=== PATIENT | female | born 1975 | race Caucasian/White ===

== ENCOUNTER 2019-02-20 14:16 | Emergency (ER) | payer SELFPAY ==
[~2019-02-20] VITALS: Ht 167.6 cm; Wt 129.6 kg
[~2019-02-20 14:16] MED LIST: AMOXICILLIN500 MG OR; BACTRIM DS1 TAB PO; FIORICET PO; LORTAB 5 OR; NAPROSYN500 MG PO; NO; ONDANSETRON4 MG PO; ROBITUSS11 OR; TOPAMAX50 M1 PO; ULTRAM50 M1 OR; ULTRAM50 MG PO; ZOFRAN ODT4 MG PO
[2019-02-20] MEDS ORDERED: AMOXICILLIN500 MG PO (15:56)
[2019-02-20] MEDS ORDERED: TORADOL PO (15:56)
[2019-02-20 16:02] VITALS: BP 162/103
== END 2019-02-20 16:05 | disposition home or self-care (01) | DRG 153 ==
LOC: ED 14:16
DX: J02.9 Acute pharyngitis, unspecified (principal); I10 Essential (primary) hypertension; E11.9 Type 2 diabetes mellitus without complications

== ENCOUNTER 2020-02-03 | Emergency (ER) | payer SELFPAY ==
[~2020-02-03] MED LIST changes: +AMOXICILLIN500 MG PO; +TORADOL PO
[2020-02-03] MEDS ORDERED: METFORMIN500 MG PO (17:17)
[2020-02-03] MEDS ORDERED: BENZONATATE200 MG PO (17:18)
[2020-02-03] MEDS ORDERED: AMOX/K CLAV875 M1 PO (17:18)
[2020-02-03] MEDS ORDERED: TRAMADOL HYDROC50 M1 PO (19:41)
[2020-02-03] MEDS ORDERED: FLEXERIL PO (19:41)
[2020-02-03] MEDS ORDERED: MEDDOSEPAK PO (19:41)
== END 2020-02-03 20:00 | disposition home or self-care (01) | DRG 563 ==
DX: S39.012A Strain of muscle, fascia and tendon of lower back, initial encounter (principal); M62.830 Muscle spasm of back; E11.9 Type 2 diabetes mellitus without complications; I10 Essential (primary) hypertension; X50.0XXA Overexertion from strenuous movement or load, initial encounter; Z79.84 Long term (current) use of oral hypoglycemic drugs

== ENCOUNTER 2020-02-06 | Emergency (ER) | payer SELFPAY ==
[~2020-02-06] MED LIST changes: +AMOX/K CLAV875 M1 PO; +BENZONATATE200 MG PO; +FLEXERIL PO; +MEDDOSEPAK PO; +METFORMIN500 MG PO; +TRAMADOL HYDROC50 M1 PO
[2020-02-07 00:38] LABS: URINE BILIRUBIN - DIPSTICK NEGATIVE (NEGATIVE); URINE BLOOD DIPSTICK TRACE-INTACT (NEGATIVE); URINE COLOR YELLOW; URINE GLUCOSE - DIPSTICK >=1000 mg/dL (NEGATIVE); URINE KETONE 15 mg/dL (NEGATIVE); URINE LEUK ESTERASE NEGATIVE (NEGATIVE); URINE NITRITE - DIPSTICK NEGATIVE (Negative); URINE PROTEIN - DIPSTICK NEGATIVE (NEG-TRACE); URINE UROBILINOGEN - DIPSTICK 0.2 E.U./dL (0.2)
[2020-02-07 01:03] LABS: HEMATOCRIT 47.3 % (37.0-47.0); HEMOGLOBIN 15.8 g/dl (12.0-16.0); IMMATURE GRANULOCYTES 0.4 % (0.0-5.0); MEAN CELL VOLUME 80.6 fL CALC (80.0-100.0); MEAN CORPUSCULAR HGB 26.9 pG CALC (26.0-32.0); MEAN CORPUSCULAR HGB CONC 33.4 g/dL CAL (32.0-36.0); NEUT# 14.79 thou/uL (2.00-7.15); RED BLOOD COUNT 5.87 mill/uL (4.20-5.60); RED CELL DISTRI WIDTH 12.8 % (11.5-15.5)
[2020-02-07 01:15] LABS: BARBITURATES NEGATIVE (NEGATIVE); COCAINE NEGATIVE (NEGATIVE); METHADONE NEGATIVE (NEGATIVE); OXCYCODONE NEGATIVE (NEGATIVE); TETRAHYDROCANNABIONOL NEGATIVE (NEGATIVE); TRICYLIC ANTIDEPRESSANTS POSITIVE (NEGATIVE)
[2020-02-07 01:22] LABS: ALBUMIN 4.3 g/dL (3.2-5.0); ALKALINE PHOSPHATASE 97 u/l (38-126); ANION GAP 18 (6-22 (CALC)); BILIRUBIN, TOTAL 0.7 mg/dL (0.0-1.4); BUN 14 mg/dL (7-17); BUN/CREATININE RATIO 24 (12-20 (CALC)); CARBON DIOXIDE 22 mmol/l (22-30); CHLORIDE 100 mmol/l (95-108); CREATININE 0.6 mg/dL (0.5-1.0); GFR > 60 ML/MIN (>=60 (CALC)); GFR FOR AFR.AMER. > 60 ML/MIN (>=60 (CALC)); SGOT/AST 34 u/l (14-36); SODIUM 135 mmol/l (137-146); TOTAL PROTEIN 7.6 g/dL (6.3-8.2)
== END 2020-02-07 02:30 | disposition home or self-care (01) | DRG 563 ==
DX: S39.012A Strain of muscle, fascia and tendon of lower back, initial encounter (principal); E11.9 Type 2 diabetes mellitus without complications; I10 Essential (primary) hypertension; X50.0XXA Overexertion from strenuous movement or load, initial encounter

== ENCOUNTER 2020-11-08 14:06 | Emergency (ER) | payer SELFPAY ==
[~2020-11-08] VITALS: Ht 167.6 cm; Wt 136.3 kg
[~2020-11-08 14:06] MED LIST changes: +METFORMIN500 M2 PO; -METFORMIN500 MG PO
[2020-11-08] MEDS ORDERED: PRAVASTATIN20 MG PO (14:31)
[2020-11-08] MEDS ORDERED: ATORVASTATIN CA10 MG PO (14:34)
[2020-11-08] MEDS ORDERED: PROPRANOLOL HYD40 MG PO (14:36)
[2020-11-08] MEDS ORDERED: KEFLEX500 M1 PO (15:08)
[2020-11-08] MEDS ORDERED: BACTRIM DS1 TAB PO (15:08)
[2020-11-08 15:15] VITALS: BP 157/81
== END 2020-11-08 15:15 | disposition home or self-care (01) | DRG 603 ==
LOC: ED 14:06
PROC: 0X950ZZ Drainage of Left Axilla, Open Approach (ICD-10-PCS; principal; 2020-11-08)
DX: L02.412 Cutaneous abscess of left axilla (principal); E11.9 Type 2 diabetes mellitus without complications; I10 Essential (primary) hypertension; J45.909 Unspecified asthma, uncomplicated; Z79.84 Long term (current) use of oral hypoglycemic drugs

== ENCOUNTER 2020-11-10 16:45 | Emergency (ER) | payer SELFPAY ==
[~2020-11-10] VITALS: Ht 167.6 cm; Wt 134.0 kg
[~2020-11-10 16:45] MED LIST changes: +ATORVASTATIN CA10 MG PO; +KEFLEX500 M1 PO; +PRAVASTATIN20 MG PO; +PROPRANOLOL HYD40 MG PO
[2020-11-10 18:28] VITALS: BP 138/77
== END 2020-11-10 18:28 | disposition home or self-care (01) | DRG 951 ==
LOC: ED 16:45
DX: Z48.01 Encounter for change or removal of surgical wound dressing (principal); E11.9 Type 2 diabetes mellitus without complications; I10 Essential (primary) hypertension; J45.909 Unspecified asthma, uncomplicated; Z79.84 Long term (current) use of oral hypoglycemic drugs

== ENCOUNTER 2020-11-12 14:27 | Emergency (ER) | payer SELFPAY ==
[~2020-11-12] VITALS: Ht 167.6 cm; Wt 134.0 kg
[2020-11-12 15:20] VITALS: BP 146/81
== END 2020-11-12 15:20 | disposition home or self-care (01) | DRG 951 ==
LOC: ED 14:27
DX: Z48.01 Encounter for change or removal of surgical wound dressing (principal); E11.9 Type 2 diabetes mellitus without complications; I10 Essential (primary) hypertension; J45.909 Unspecified asthma, uncomplicated; Z79.84 Long term (current) use of oral hypoglycemic drugs

== ENCOUNTER 2021-03-01 10:58 | Inpatient (IN) | payer OTHER ==
[~2021-03-01] VITALS: Ht 167.6 cm; Wt 134.0 kg
--- NOTE | 2021-03-01 12:00 | NUR ---
PATIENT POSITIONED FOR COMFORT,CALL FROST GIVEN.
[2021-03-01 12:25] LABS: HEMATOCRIT 44.7 % (37.0-47.0); HEMOGLOBIN 14.5 g/dl (12.0-16.0); IMMATURE GRANULOCYTES 0.5 % (0.0-5.0); MEAN CELL VOLUME 81.6 fL CALC (80.0-100.0); MEAN CORPUSCULAR HGB 26.5 pG CALC (26.0-32.0); MEAN CORPUSCULAR HGB CONC 32.4 g/dL CAL (32.0-36.0); NEUT# 5.03 thou/uL (2.00-7.15); RED BLOOD COUNT 5.48 mill/uL (4.20-5.60); RED CELL DISTRI WIDTH 12.8 % (11.5-15.5)
[2021-03-01 12:57] LABS: ALKALINE PHOSPHATASE 105 u/l (38-126); BILIRUBIN, TOTAL 0.9 mg/dL (0.0-1.4); BUN 14 mg/dL (7-17); BUN/CREATININE RATIO 25 (12-20 (CALC)); CHLORIDE 95 mmol/l (95-108); CREATININE 0.5 mg/dL (0.5-1.0); GFR > 60 ML/MIN (>=60 (CALC)); GFR FOR AFR.AMER. > 60 ML/MIN (>=60 (CALC)); LIPASE 50 u/l (23-300); SGOT/AST 39 u/l (14-36); SODIUM 134 mmol/l (137-146); TOTAL PROTEIN 7.5 g/dL (6.3-8.2)
--- NOTE | 2021-03-01 13:00 | NUR ---
PATIENT RESTING QUIETLY. CALL FROST IN REAC
[2021-03-01 13:08] LABS: ANION GAP 12 (6-22 (CALC)); C-REACTIVE PROTEIN 12.8 mg/dL (0-0.9); CARBON DIOXIDE 30 mmol/l (22-30); POTASSIUM 3.4 mmol/l (3.5-5.1)
--- NOTE | 2021-03-01 14:00 | NUR ---
RESTING,CALM. CALL FROST IN REACH
[2021-03-01 14:09] LABS: URINE BLOOD DIPSTICK NEGATIVE (NEGATIVE); URINE COLOR YELLOW; URINE GLUCOSE - DIPSTICK 250 mg/dL (NEGATIVE); URINE KETONE >=80 mg/dL (NEGATIVE); URINE LEUK ESTERASE NEGATIVE (NEGATIVE); URINE PH 6.5 (4.5-8.0); URINE PROTEIN - DIPSTICK >=300 mg/dL (NEG-TRACE); URINE SPECIFIC GRAVITY 1.025
[2021-03-01 14:12] LABS: URINE BILIRUBIN - DIPSTICK MODERATE (NEGATIVE); URINE EPITHELIAL CELLS MODERATE EPI/hpf (0-FEW); URINE NITRITE - DIPSTICK NEGATIVE (Negative)
--- NOTE | 2021-03-01 15:00 | NUR ---
NO DISTRESS. CATIA FROST AVAILABLE
--- NOTE | 2021-03-01 16:06 | NUR ---
RESTING IN BED, DRINKING WATER AT THIS TIME
--- NOTE | 2021-03-01 17:05 | NUR ---
REPORT CALLED TO CHERIE RECEIVING NURSE ON MS IN SBAR FORMAT.
--- NOTE | 2021-03-01 17:05 | NUR ---
RPEORT REC FROM ASPEN FRANCIS
--- NOTE | 2021-03-01 17:39 | NUR ---
belongings list completed and signed by patient.
[2021-03-01] MEDS ORDERED: TIMOPTIC OCUDO (17:51)
[2021-03-01 17:53] VITALS: BP 122/72
--- NOTE | 2021-03-01 17:53 | NUR ---
PT ARRIVED VIA WC ACCOMPANIED BY Melisa HERNANDEZ RN. A&O X3. O2 VIA NC @2L APPLIED, O2 VIA ROOM AIR CURRENTLY 89-90. EXERTIONAL SOB NOTED. CLEAR/DIMINISHED BREATH SOUNDS UPON AUSCULTATION. PT REPORTS TO HAVE TESTED OUTPT AND POSITIVE ON SUNDAY, BUT SYMPTOMS BEGAN TO APPEAR ON 02/17. REPORTS WORSENING SOB. ACCOUNTS PAYABLE COORDINATOR #[id number] WITH CURRENT RATE OF 85 SR WTH PVCS, PER [facility]. TRACE EDEMA NOTED TO BLE. STRONG PEDAL PULSES. REGULAR S1&S2 SOUNDS HEARD UPON AUSCULTATION. REPORTS NAUSEA AND VOMITING, BUT DENIES ANY VOMITING EPISODES TODAY. #20 RAC, HEALTHY AND PATENT/FLUSHES WITH EASE. IS DEVICE GIVEN, CURRENTLY ACHIEVING 1000ML, GOAL SET AT 1500ML. PT DEMONSTRATED PROPER USE OF DEVICE, ENCOURAGED PT TO USE DEVICE EVERY HOUR WHILE AWAKE. ASSESSMENT COMPLETED. DISCUSSED POC. CALL LIGHT WITHIN REACH.
[2021-03-01] MEDS ORDERED: EYE DROP (17:54)
--- NOTE | 2021-03-01 17:54 | NUR ---
TO M/S VIA WC. STABLE UPON ARRIVAL. IV INTACT
--- NOTE | 2021-03-01 19:00 | NUR ---
REPORT RECEIVED FROM Adam SETH RN, CARE OF PT ASSUMED AT THIS TIME.
--- NOTE | 2021-03-01 20:51 | NUR ---
SPOKE WITH FELT HAT INSPECTOR AND PACKER PAPITO CAMPBELL RN TO RETRIEVE ALBUTEROL INHALER ONE IS NOT AVAILABLE ON UNIT.
--- NOTE | 2021-03-01 21:18 | NUR ---
PHYSICAL ASSESMENT COMPLETED. REPORTS COUGH, SOB WITH EXERTION AND GEN BODY ACHES. 02 AT 2L/M VIA NC. RESPIRATIONS REGULAR AND UNLABORED AT REST. FINGER STICK GLUCOSE 389mg/dl. SCHEDULED MEDICATIONS ADMINISTERED, PRN APAP ADMINSITERED FOR GENERALIZED BODY AHCES AND PRN ROBITUSSIN FOR COUGH. SEE E-MAR. PT REQUEST APPLE JUICE AND DENIES FURTHER NEEDS. PLAN OF CARE REVIEWED, PT VERBALIZES UNDERSTANDING AND DENIES QUESTIONS. CALL FROST WITHIN REACH, AGREES TO CALL PRN. COVID ISOLATION IN PLACE PER [facility] POLICY.
[2021-03-02] VITALS: BP 127/74
--- NOTE | 2021-03-02 01:00 | NUR ---
PT APPEARS TO BE SLEEPING COMFORTABLY, LAYING IN BED WITH EYES CLOSED, RESPIRATIONS REGULAR AND UNLABORED. NO APPARENT DISTRESS. CALL FROST REMAINS WITHIN REACH.
[2021-03-02 04:00] VITALS: BP 138/72
--- NOTE | 2021-03-02 04:59 | NUR ---
AM LABS DRAWN BY RADHA LIGHT CLEANER.
[2021-03-02 05:36] LABS: HEMATOCRIT 47.5 % (37.0-47.0); HEMOGLOBIN 14.9 g/dl (12.0-16.0); IMMATURE GRANULOCYTES 0.4 % (0.0-5.0); MEAN CELL VOLUME 83.8 fL CALC (80.0-100.0); MEAN CORPUSCULAR HGB 26.3 pG CALC (26.0-32.0); MEAN CORPUSCULAR HGB CONC 31.4 g/dL CAL (32.0-36.0); NEUT# 1.53 thou/uL (2.00-7.15); RED BLOOD COUNT 5.67 mill/uL (4.20-5.60); RED CELL DISTRI WIDTH 12.7 % (11.5-15.5)
[2021-03-02 06:07] LABS: ALBUMIN 3.8 g/dL (3.2-5.0); ALKALINE PHOSPHATASE 96 u/l (38-126); BILIRUBIN, TOTAL 0.8 mg/dL (0.0-1.4); BUN 11 mg/dL (7-17); BUN/CREATININE RATIO 28 (12-20 (CALC)); C-REACTIVE PROTEIN 8.7 mg/dL (0-0.9); CHLORIDE 102 mmol/l (95-108); CREATININE 0.4 mg/dL (0.5-1.0); GFR > 60 ML/MIN (>=60 (CALC)); GFR FOR AFR.AMER. > 60 ML/MIN (>=60 (CALC)); SGOT/AST 35 u/l (14-36); SODIUM 136 mmol/l (137-146); TOTAL PROTEIN 7.1 g/dL (6.3-8.2)
--- NOTE | 2021-03-02 06:16 | NUR ---
PT REPORTS SHE FEELS SHE MAY BE GETTING A YEAST INFECTION. WILL ENDORSE TO ONCOMING NURSE TO ENDORSE TO PROVIDER.
[2021-03-02 06:22] LABS: ANION GAP 17 (6-22 (CALC)); CARBON DIOXIDE 22 mmol/l (22-30); POTASSIUM 4.9 mmol/l (3.5-5.1)
[2021-03-02 08:00] VITALS: BP 113/70
--- NOTE | 2021-03-02 08:50 | NUR ---
PT LAYING IN BED. A&O X4. O2 VIA NC @2L IN PLACE. EXERTIONAL SOB NOTED/REPORTED. CLEAR/DIMINISHED BREATH SOUNDS UPON AUSCULTATION. REGULAR HR/RHYTHM HEARD UPON AUSCULTATION. DATA TECHNICIAN IN PLACE. ACTIVE BOWEL SOUNDS HEARD X4 QUADS. PT REPORTS NAUSEA RELIEF, NO VOMITING EPISODES. IS DEVICE AT BEDSIDE, PT ENCOURAGED TO US IS DEVICE THROUGHOUT THE DAY. PT CURRENTLY DEMONSTRATING PROPER USE OF DEVICE, CURRENTLY ACHIEVING 1000ML, GOAL SET AT 1500 ML X8 REPITITIONS. #20 RAC HEALTHY AND PATENT. TRACE EDEMA NOTED TO BLE. ASSESSMENT COMPLETED. DISCUSSED POC. CALL LIGHT WITHIN REACH.
--- NOTE | 2021-03-02 10:38 | NUR ---
ASSISTED THE PT TO BATHROOM AND INTO THE CHAIR. O2 VIA NC @2L REMAINS IN PLACE. VENTOLIN INHALER GIVEN. EYE DROPS PROFILED. PT C/O OF "A LITTLE BIT OF NAUSEA", REQUESTED CRACKERS; GIVEN. NO OTHER NEEDS AT THIS TIME. CALL LIGHT WITHIN REACH.
[2021-03-02 11:02] VITALS: BP 125/76
--- NOTE | 2021-03-02 14:30 | NUR ---
UPON ENTERING ROOM, PT SLEEPING. AWAKENED TO TAKE VENTOLIN INHALER. CONTINUES OM O2 VIA NC @2L. NO NEEDS AT THIS TIME. CALL LIGHT WITHIN REACH.
[2021-03-02 15:35] VITALS: BP 132/79
--- NOTE | 2021-03-02 18:11 | NUR ---
PT SITTING IN BED. O2 TITRATED DOWN TO 1L AT THIS TIME. #20G RAC DRESSING REMOVED AND REDRESSED. NO OTHER NEEDS AT THIS TIME. CALL LIGHT WITHIN REACH
--- NOTE | 2021-03-02 18:40 | NUR ---
O2 DURGA NC TITRATED UP TO 2L VIA NC. O2 CURRENTLY 94% ON 2L. VENTOLIN INHALER GIVEN. NO NEEDS AT THIS TIME. CALL LIGHT WITHIN REACH.
[2021-03-02 19:00] VITALS: BP 108/77
--- NOTE | 2021-03-02 20:00 | NUR ---
PT REMAINS ON ISOLATION ZALDIVAR D/T COVID POSITIVE STATUS. SHIFT ASSESSMENT COMPLTED WITH PT, PLEASE SEE ASSESSMENT. NO COMPLAINTS VOICED. SAFETY PRECAUTIONS IN PLACE. WILL MONITOR
--- NOTE | 2021-03-02 21:20 | NUR ---
HS BLOOD SUGAR READ 286 VIA FINGERSTICK. STAT BLOOD GLUCOSE ORDERED. RESULTS FROM BLOOD GLUCOSE READ AT 268. MD NOTIFIED AND NEW ORDER RECIVED, INCREASE SLIDING SCALE TO HIGH DOSE SLIDER AND NPH INSULIN 10U SQ BID STARTING TONIGHT. NPH ADMINSTERED PER ORDER. WILL MONITOR.
[2021-03-03] VITALS: BP 140/75
--- NOTE | 2021-03-03 | NUR ---
PT RESTRING QUIETLY, NO COMPLAINTS VOICED AT THIS TIME. DENIES PAIN. CONTINUES TO HAVE A NON-PRODUCTIVE COUGH. O2 SATURATIONS REMAIN WNL. SAFETY PRECAUTIONS IN PLACE, BED IN LOWEST POSITION, CALL LIGHT WITHIN REACH.
--- NOTE | 2021-03-03 03:47 | NUR ---
PT RESTING QUIETLY IN ROOM ON HER RIGHT SIDE WITH HER EYES CLOSED. NO COMPLAINTS VOICED, NO S/S OF DISTRESS NOTED. BREATHING IS EVEN AND UNLABORED. SAFETY PRECAUTIONS IN PLACE, BED IN LOWEST POSITION, CALL LIGHT WITHIN REACH. WILL MONITOR
[2021-03-03 04:00] VITALS: BP 123/66
[2021-03-03 05:41] LABS: HEMATOCRIT 42.4 % (37.0-47.0); HEMOGLOBIN 13.5 g/dl (12.0-16.0); MEAN CELL VOLUME 82.3 fL CALC (80.0-100.0); MEAN CORPUSCULAR HGB 26.2 pG CALC (26.0-32.0); MEAN CORPUSCULAR HGB CONC 31.8 g/dL CAL (32.0-36.0); RED BLOOD COUNT 5.15 mill/uL (4.20-5.60); RED CELL DISTRI WIDTH 12.6 % (11.5-15.5)
[2021-03-03 06:11] LABS: ANION GAP 14 (6-22 (CALC)); BUN 13 mg/dL (7-17); BUN/CREATININE RATIO 26 (12-20 (CALC)); CARBON DIOXIDE 24 mmol/l (22-30); CHLORIDE 101 mmol/l (95-108); CREATININE 0.5 mg/dL (0.5-1.0); GFR > 60 ML/MIN (>=60 (CALC)); GFR FOR AFR.AMER. > 60 ML/MIN (>=60 (CALC)); MAGNESIUM 2.1 mg/dL (1.6-2.3); SODIUM 135 mmol/l (137-146)
--- NOTE | 2021-03-03 07:15 | NUR ---
REPORT RECEIVED FROM SHARON AMANDA. PT RESTING IN BED SUPINE WITH EYES CLOSED AND NO SIGNS OF DISTRESS; AWAKENS TO VERBAL STIMULI; DROWSY AND ORIENTED X 3. DENIES PAIN. RESPIRATIONS EVEN AND UNLABORED ON OXYGEN 2L VIA NC; PT DOES REPORT MILD SOB; SPO2 95% CURRENTLY IN SUPINE POSITION. LUNGS ARE CLEAR; TRACE ANKLE EDEMA NOTED. 10 UNITS OF SLIDING SCALE INSULIN COVERAGE GIVEN FOR ACCU CHECK OF 347. POC REVIEWED; PT ENCOUARGED TO VERBALIZE CONCERNS. STATES UNDERSTANDING. SAFETY MEASURES IN PLACE; CALL LIGHT WITHIN REACH.
[2021-03-03 07:41] VITALS: BP 138/68
--- NOTE | 2021-03-03 10:50 | NUR ---
DR. GRIMES AND ANNMARIE FOX AT BEDSIDE. ACCU CHECK 410; 14 UNITS OF HUMALOG GIVEN PER SLIDING SCALE; VERBAL ORDER RECEIVED FOR AN ADDITIONAL 10 UNITS X 1.
[2021-03-03 10:51] VITALS: BP 127/59
--- NOTE | 2021-03-03 12:37 | NUR ---
SITTING UP ON COUCH BESIDE WINDOW; EXTENSION TUBING IN PLACE SHE CONTINUES TO REQUIRE 2L OF OXYGEN VIA NC; FLAT AFFECT. ROCEPHIN AND ZITHROMAX INFUSED WITHOUT DIFFICULTY.
--- NOTE | 2021-03-03 13:06 | NUR ---
TYLENOL GIVEN FOR 05/14 HEADACHE; COOL CLOTH APPLIED. EYE DROPS SELF ADMINSITERED BY PATIENT.
--- NOTE | 2021-03-03 14:30 | NUR ---
TYLENOL EFFECTIVE FOR HEADACHE. DRESSING TO IV IN RAC CHANGED; IV IS PATENT AND FLUSHES WITH GOOD BLOOD RETURN; REMDESIVIR NOW INFUSING. PT REQUESTING FAN; PROVIDED. FAMILY BROUGHT PT DRINK; REMINDED THAT SHE IS ON A DIABETIC DIET.
[2021-03-03 14:51] VITALS: BP 163/77
[2021-03-03 19:13] VITALS: BP 137/62
--- NOTE | 2021-03-03 22:37 | NUR ---
PATIENT'S BLOOD GLUCOSE HS WAS 431. 14 UNITS FAST ACTING INSULIN SQ. COLLIN ECOMMERCE ANALYST NOTIFIED. NEW ORDERS RECEIVED. AWAITING FOR PHARMACY TO VERIFY ORDER. PATIENT CURRENTLY RESTING IN BED WITHOUT COMPLAINT.
[2021-03-04 00:35] VITALS: BP 157/66
[2021-03-04 05:18] VITALS: BP 156/75
[2021-03-04 06:48] LABS: HEMATOCRIT 42.6 % (37.0-47.0); HEMOGLOBIN 13.3 g/dl (12.0-16.0); IMMATURE GRANULOCYTES 0.8 % (0.0-5.0); MEAN CELL VOLUME 84.2 fL CALC (80.0-100.0); MEAN CORPUSCULAR HGB 26.3 pG CALC (26.0-32.0); MEAN CORPUSCULAR HGB CONC 31.2 g/dL CAL (32.0-36.0); NEUT# 6.27 thou/uL (2.00-7.15); RED BLOOD COUNT 5.06 mill/uL (4.20-5.60); RED CELL DISTRI WIDTH 12.7 % (11.5-15.5)
[2021-03-04 07:18] VITALS: BP 151/62
[2021-03-04 07:22] LABS: ALBUMIN 3.4 g/dL (3.2-5.0); ALKALINE PHOSPHATASE 88 u/l (38-126); ANION GAP 10 (6-22 (CALC)); BILIRUBIN, TOTAL 0.6 mg/dL (0.0-1.4); BUN 14 mg/dL (7-17); BUN/CREATININE RATIO 25 (12-20 (CALC)); C-REACTIVE PROTEIN 1.2 mg/dL (0-0.9); CHLORIDE 101 mmol/l (95-108); CREATININE 0.6 mg/dL (0.5-1.0); GFR > 60 ML/MIN (>=60 (CALC)); GFR FOR AFR.AMER. > 60 ML/MIN (>=60 (CALC)); POTASSIUM 3.4 mmol/l (3.5-5.1); SGOT/AST 18 u/l (14-36); SODIUM 138 mmol/l (137-146); TOTAL PROTEIN 6.5 g/dL (6.3-8.2)
[2021-03-04 07:30] LABS: CARBON DIOXIDE 30 mmol/l (22-30)
--- NOTE | 2021-03-04 07:30 | NUR ---
REPORT RECEIVED FROM PENNY FALK. PT SITTING UP IN BED; ALERT AND ORIENTED X 3. DENIES PAIN. RESPIRATIONS EVEN AND UNLABORED ON OXYGEN 2L VIA NC; SPO2 95%; TITRATED OXYGEN DOWN TO 1L AT THIS TIME; LUNGS ARE CLEAR. PT IS INDEPENDENT IN ROOM; ACCU CHECK 179. SUGAR PACKETS FOUND ON BEDSIDE TABLE; PT REMINDED THAT SHE NEEDS TO BE USING SUGAR SUBTITUTES AND SUGAR REMOVED FROM TABLE. PT STATES, "I DON'T LIKE THE WAY THOSE TASTE AND I ONLY USE 3 PACKETS IN MY TEA." DIETARY CONSULT ORDERED FOR DIABETIC EDUCATION. POC REVIEWED. PT ENCOURAGED TO VERBALIZE CONCERNS. STATES UNDERSTANDING. SAFETY MEASURES IN PLACE. CALL LIGHT WITHIN REACH.
--- NOTE | 2021-03-04 09:32 | NUR ---
IV SITE BURNING; ATTEMPT X 2 UNSUCCESSFUL. ROBITUSSIN AND VENTOLIN INHALER GIVEN WITH AM MEDS FOR PRODUCTIVE COUGH WITH WHITE/CLEAR SPUTUM AND SOB WITH EXERTION.
--- NOTE | 2021-03-04 09:53 | NUR ---
#22G IV STARTED TO LFA BY PENNY DWYER. IV TO RAC DC'D WITH CATH TIP INTACT; PT TOLERATED WELL. ZITHROMAX NOW INFUSING WITHOUT DIFFICULTY.
[2021-03-04 11:20] VITALS: BP 152/74
--- NOTE | 2021-03-04 11:55 | NUR ---
PT ASKING OTHER STAFF MEMBER FOR SUGAR PACKETS. NUTRITION CONSULT ORDERED FOR DIABETIC EDUCATION; PT GIVEN SOME EDUCATION ABOUT SKILLED NURSING EFFECTS OF UNCONTROLLED DIABETES. 2 UNITS OF INSULIN GIVEN FOR ACCU CHECK OF 200. RESPIRATIONS ARE EVEN AND SHALLOW; 92% ON 1L VIA NC.
--- NOTE | 2021-03-04 13:59 | NUR ---
WRITTEN DIABETIC EDUCATION PROVIDED TO PATIENT AND GOETZ POINTS REVIEWED; PT HAS FLAT AFFECT AND DOES NOT ENGAGE IN DISCUSSION. NURSE ASKED PT IF SHE UNDERSTOOD AND PT SHAKES HEAD YES, BUT DOES NOT RESPOND VERBALLY. REMDESIVIR INFUSING. PT REQUESTS TO TAKE A SHOWER AFTER INFUSION.
[2021-03-04 15:42] VITALS: BP 149/70
--- NOTE | 2021-03-04 17:00 | NUR ---
SET UP FOR SHOWER; TOLERATED EXERTION WELL. SITTING UP IN BEDSIDE CHAIR. NO REQUESTS OR CONCERNS AT THIS TIME. CALL LIGHT WITHIN REACH.
[2021-03-04 19:37] VITALS: BP 151/61
--- NOTE | 2021-03-04 20:00 | NUR ---
PT AWAKE IN HIGH [place] POSITION WATCHING TV, WITH BELONGINGS AND CALL LIGHT WITHN REACH. PT ADMINISTERS OWN EYE DROPS AND INHALER WHICH ARE BEDSIDE. NO COMPLAINT OF SOB, AMBULATES WITHOUT ASSISTANCE. WILL CONTINUE TO MONITOR.
--- NOTE | 2021-03-05 | NUR ---
PT RESTING WITH EYES CLOSED WITHOUT S/S OF DISTRESS. CALL LIGHT AND BELONGINGS WITHIN REACH.
[2021-03-05 00:03] VITALS: BP 161/76
[2021-03-05 04:00] VITALS: BP 165/56
--- NOTE | 2021-03-05 04:00 | NUR ---
PT SLEEPING WITHOUT S/S OF DISCOMFORT. CALL LIGHT AND BELONGINGS WITHIN REACH. WILL CONTINUE TO MONITOR.
[2021-03-05 05:43] LABS: HEMATOCRIT 39.6 % (37.0-47.0); HEMOGLOBIN 12.5 g/dl (12.0-16.0); MEAN CELL VOLUME 82.3 fL CALC (80.0-100.0); MEAN CORPUSCULAR HGB CONC 31.6 g/dL CAL (32.0-36.0); RED BLOOD COUNT 4.81 mill/uL (4.20-5.60); RED CELL DISTRI WIDTH 12.7 % (11.5-15.5)
--- NOTE | 2021-03-05 06:00 | NUR ---
PT SLEEPING SHOWING NO SIGNIFICANT DECREASE IN O2 LEVELS OVER NIGHT, MAY BE ABLE TO WEEN OFF OXYGEN TODAY IF IT DOES NOT DECREASE WITH ACTIVITY. WILL CONTINUE TO MONITOR.
[2021-03-05 06:07] LABS: ANION GAP 10 (6-22 (CALC)); BUN 13 mg/dL (7-17); BUN/CREATININE RATIO 30 (12-20 (CALC)); CARBON DIOXIDE 27 mmol/l (22-30); CHLORIDE 103 mmol/l (95-108); CREATININE 0.5 mg/dL (0.5-1.0); GFR > 60 ML/MIN (>=60 (CALC)); GFR FOR AFR.AMER. > 60 ML/MIN (>=60 (CALC)); POTASSIUM 3.7 mmol/l (3.5-5.1); SODIUM 136 mmol/l (137-146)
[2021-03-05 07:30] VITALS: BP 147/84
--- NOTE | 2021-03-05 08:00 | NUR ---
PT WAS FOUND RESTING IN BED;PT IS A&OX3;VS AND ASSESSMENT WERE COMPLETED;PT HAS NO REPORTS OF PAIN AT THIS TIME;HEART SOUNDS ARE REGULAR IN RATE AND RHYTHM;LUNG SOUNDS ARE CLEAR AND DIMINISHED;RESPIRATIONS ARE EVEN AND UNLABORED ON O2 @1L VIA NC;PT IS REPORTING PRODUCTIVE COUGH WITH THICK WHITE MUCUS;TELE IS IN PLACE;#22G IV IN LFA IS SL;IV SITE IS FREE OF COMPLICATIONS AT THIS TIME;SAFETY PRECAUTIONS IN PLACE;PT IS IN NEG PRESSURE ROOM ON AIR/CONTACT PRECAUTIONS DUE TO COVID-19 DIAGNOSIS;CALL LIGHT WITHIN REACH;BED IN LOWEST POSITION;WILL CONTINUE TO MONITOR
[2021-03-05 11:10] VITALS: BP 142/80
--- NOTE | 2021-03-05 12:00 | NUR ---
PT WAS FOUND RESTING IN BED EATING LUNCH;TELE IS IN PLACE;O2@1L VIA NC IS IN PLACE;SAFETY PRECAUTIONS IN PLACE;CALL LIGHT WITHIN REACH;WILL CONTINUE TO MONITOR.
[2021-03-05 14:58] VITALS: BP 171/79
--- NOTE | 2021-03-05 16:00 | NUR ---
PT WAS FOUND RESTING COMFORTABLY IN BED IN SEMI-FOWLERS POSITION;PT HAS NO REPORTS OF PAIN AT THIS TIME;TELE IS IN PLACE;O2@1L VIA NC IS IN PLACE;#22G IV IN LFA IS SL, PATENT AND FREE OF COMPLICATIONS AT THIS TIME;SAFETY PRECAUTIONS IN PLACE;CALL LIGHT WITHIN REACH;WILL CONTINUE TO MONITOR.
[2021-03-05 20:04] VITALS: BP 174/74
--- NOTE | 2021-03-05 22:41 | NUR ---
PATIENT CURRENTLY LAYING IN BED WITH EYES CLOSED. VAD TO LFA INFILTRATED AND D/C'D. NEW VAD #22 LAC X1 ATTEMPT. TOLERATED WELL. HYDRALAZINE IV GIVEN FOR ELEVATED B/P. ON TELEMETRY. DENIES PAIN. BED IN LOW POSITION. CALL LIGHT WITHIN REACH.
[2021-03-06] VITALS (7 sets, daily range): BP systolic 143–167; BP diastolic 65–81
[2021-03-06 05:01] LABS: HEMATOCRIT 40.3 % (37.0-47.0); HEMOGLOBIN 12.9 g/dl (12.0-16.0); IMMATURE GRANULOCYTES 1.1 % (0.0-5.0); MEAN CELL VOLUME 82.1 fL CALC (80.0-100.0); MEAN CORPUSCULAR HGB 26.3 pG CALC (26.0-32.0); NEUT# 4.93 thou/uL (2.00-7.15); RED BLOOD COUNT 4.91 mill/uL (4.20-5.60); RED CELL DISTRI WIDTH 12.7 % (11.5-15.5)
[2021-03-06 05:24] LABS: ALBUMIN 2.8 g/dL (3.2-5.0); ALKALINE PHOSPHATASE 67 u/l (38-126); ANION GAP 9 (6-22 (CALC)); BILIRUBIN, TOTAL 0.5 mg/dL (0.0-1.4); BUN 17 mg/dL (7-17); BUN/CREATININE RATIO 32 (12-20 (CALC)); C-REACTIVE PROTEIN 3.5 mg/dL (0-0.9); CARBON DIOXIDE 26 mmol/l (22-30); CHLORIDE 102 mmol/l (95-108); CREATININE 0.5 mg/dL (0.5-1.0); GFR > 60 ML/MIN (>=60 (CALC)); GFR FOR AFR.AMER. > 60 ML/MIN (>=60 (CALC)); POTASSIUM 3.8 mmol/l (3.5-5.1); SGOT/AST 16 u/l (14-36); SODIUM 134 mmol/l (137-146); TOTAL PROTEIN 5.8 g/dL (6.3-8.2)
--- NOTE | 2021-03-06 07:00 | NUR ---
PT REPORT RECEIVED FROM NIGHT NURSEQUIN.
--- NOTE | 2021-03-06 08:00 | NUR ---
PT WAS FOUND RESTING IN BED;PT IS A&O X3;VS AND ASSESSMENT WERE COMPLETED;PT HAS NO REPORTS OF PAIN AT THIS TIME;HEART SOUNDS ARE REGULAR IN RATE AND RHYTHM;TELE IS IN PLACE;LUNG SOUNDS ARE CLEAR AND DIMINISHED IN LOWER LOBES;RESPIRATIONS ARE EVEN AND UNLABORED ON O2@1L VIA NC;PT DOES REPORT SOME EXERTIONAL SOB;NO COUGH NOTED THIS MORNING;#22G IV IN LAC IS SL, PATENT AND FREE OF COMPLICATIONS AT THIS TIME;SAFETY PRECAUTIONS IN PLACE;CALL LIGHT WITHIN REACH;WILL CONTINUE TO MONITOR.
--- NOTE | 2021-03-06 12:00 | NUR ---
PT WAS FOUND RESTING IN BED;PT HAS NO REPORTS OF PAIN AT THIS TIME;TELE IS IN PLACE;O2@1L VIA NC IS IN PLACE;SAFETY PRECAUTIONS IN PLACE;CALL LIGHT WITHIN REACH;WILL CONTINUE TO MONITOR.
--- NOTE | 2021-03-06 16:00 | NUR ---
PT WAS FOUND RESTING IN BED;PT HAS NO REPORTS OF PAIN AT THIS TIME;TELE IS IN PLACE;#22G IV IN LAC IS SL, PATENT AND FREE OF COMPLICATIONS AT THIS TIME;O2@1L VIA NC IS IN PLACE;SAFETY PRECAUTIONS IN PLACE;CALL LIGHT WITHIN REACH;WILL CONTINUE TO MONITOR.
--- NOTE | 2021-03-06 19:06 | NUR ---
REPORT FROM HUNG FRANCIS. ASSUMED PT CARE.
--- NOTE | 2021-03-06 19:25 | NUR ---
PT NOTED RESTING IN BED. A&OX4. NO APPARENT DISTRESS NOTED. RESPIRATIONS EVEN AND UNLABORED. 02 @ 1L/M VIA NC. PT MEDICATED FOR HEADACHE 04/14 WITH PRN APAP. PT DENIES ANY OTHER PAIN OR SOB. ORGANIZATIONAL DEVELOPMENT SPECIALIST IN PLACE. IV SITE APPEARS HEALTHY. DISCUSSED POC. PT VERBALIZED UNDERSTANDING. NO CURRENT WANTS OR NEEDS. CALL LIGHT WITHIN REACH. WILL CONTINUE TO MONITOR.
--- NOTE | 2021-03-06 23:53 | NUR ---
PT RESTING IN BED WITH EYES CLOSED. NO APPARENT DISTRESS NOTED. RESPIRATIONS EVEN AND UNLABORED. O2 @ 1L/M VIA NC. CALL LIGHT WITHIN REACH. WILL CONTINUE TO MONITOR.
--- NOTE | 2021-03-06 23:55 | NUR ---
RN ON SHIFT TO GIVE IV APRESOLINE FOR ELEVATED BP.
[2021-03-07 00:09] VITALS: BP 157/77
--- NOTE | 2021-03-07 00:09 | NUR ---
PATIENT RESTING IN BED, REPEATED BP 157/77 HR 58, PRN APRESOLINE NOT BGIVEN AT THIS TIME PARAMETER >160 SBP
[2021-03-07 04:00] VITALS: BP 153/78
[2021-03-07 05:46] LABS: HEMATOCRIT 39.1 % (37.0-47.0); HEMOGLOBIN 12.5 g/dl (12.0-16.0); IMMATURE GRANULOCYTES 1.4 % (0.0-5.0); MEAN CELL VOLUME 82.3 fL CALC (80.0-100.0); MEAN CORPUSCULAR HGB 26.3 pG CALC (26.0-32.0); NEUT# 5.28 thou/uL (2.00-7.15); RED BLOOD COUNT 4.75 mill/uL (4.20-5.60); RED CELL DISTRI WIDTH 12.7 % (11.5-15.5)
[2021-03-07 06:16] LABS: ALBUMIN 2.7 g/dL (3.2-5.0); ALKALINE PHOSPHATASE 59 u/l (38-126); ANION GAP 10 (6-22 (CALC)); BILIRUBIN, TOTAL 0.6 mg/dL (0.0-1.4); BUN 15 mg/dL (7-17); BUN/CREATININE RATIO 33 (12-20 (CALC)); CARBON DIOXIDE 25 mmol/l (22-30); CHLORIDE 103 mmol/l (95-108); CREATININE 0.5 mg/dL (0.5-1.0); GFR > 60 ML/MIN (>=60 (CALC)); GFR FOR AFR.AMER. > 60 ML/MIN (>=60 (CALC)); POTASSIUM 3.6 mmol/l (3.5-5.1); SGOT/AST 21 u/l (14-36); SODIUM 134 mmol/l (137-146); TOTAL PROTEIN 5.6 g/dL (6.3-8.2)
--- NOTE | 2021-03-07 07:25 | NUR ---
PATIENT LAYING IN BED AT THIS TIME O2 ON AT 1 LITER AND DENIES ANY SHORTNESS OF BREATH AT THIS TIME. LUNG SHERIFF ARE CLEAR IN UPPER AND MIDDLE SHERIFF BUT ARE DIMINISHED IN LOWER LOBES. PATIENT DENIES ANY PAIN AT THIS TIME. BOATBUILDER APPRENTICE WOOD DONE SEE INTERVENTIONS. TELE REMAINS ON AND BEING MONITORED BY ED. SIDERAILS ARE UP X 2 CALL LIGHT IS WITHIN REACH.
[2021-03-07 08:23] VITALS: BP 150/76
[2021-03-07 11:00] VITALS: BP 147/67
--- NOTE | 2021-03-07 11:46 | NUR ---
PATIENT RESTING IN BED AT THIS TIME. CALL LIGHT WITHIN REACH SIDERAILS UP X 2 DENIES ANY NEEDS AT THIS TIME.
[2021-03-07] MEDS ORDERED: ZITHROMAX250 MG PO (12:56)
[2021-03-07] MEDS ORDERED: DEXAMETHASON6 MG PO (12:56)
[2021-03-07] MEDS ORDERED: OXY1 (12:57)
[2021-03-07] MEDS ORDERED: NOVOLIN N100 UNIT/3 SC (13:58)
[2021-03-07] MEDS ORDERED: [UNRECOGNIZED DRUG - SUPPLY] XX (13:59)
--- NOTE | 2021-03-07 14:43 | NUR ---
PATIENT D/C AT THIS TIME. PATIENT IS GOING HOME ON 02 AND VERBALIZES UNDERSTANDING OF DISCHARGE INSTRUCTIONS.
--- NOTE | 2021-03-07 15:06 | NUR ---
Discharge instructions given. Patient verbalizes understanding of same. Discharged in stable condition via Wheelchair to Home with family. All belongings sent with pt. PATIENT SENT HOME WITH PORTABLE O2 TANK AT THIS TIME. INSTRUCTIONS GIVEN ON HOW TO USE AND PATIENT VERBALIZED UNDERSTANDING
== END 2021-03-07 15:06 | disposition home or self-care (01) | DRG 177 ==
LOC: ED 10:58 → ED-I 15:03 → ED 15:16 → MS2 15:17
PROVIDERS: Family Medicine; Nurse Practitioner; ADMIT Internal Medicine; ATTEND Internal Medicine
PROC: XW033E5 Introduction of Remdesivir Anti-infective into Peripheral Vein, Percutaneous Approach, New Technology Group 5 (ICD-10-PCS; principal; 2021-03-03)
DX: U07.1 COVID-19 (principal); J12.82 Pneumonia due to coronavirus disease 2019; J96.01 Acute respiratory failure with hypoxia; Z68.42 Body mass index [BMI] 45.0-49.9, adult; I10 Essential (primary) hypertension; E11.65 Type 2 diabetes mellitus with hyperglycemia; J45.909 Unspecified asthma, uncomplicated; E78.5 Hyperlipidemia, unspecified; H40.9 Unspecified glaucoma; B37.3 Candidiasis of vulva and vagina; F41.9 Anxiety disorder, unspecified; E66.9 Obesity, unspecified; R11.2 Nausea with vomiting, unspecified; R10.84 Generalized abdominal pain; F32.9 Major depressive disorder, single episode, unspecified; Z79.84 Long term (current) use of oral hypoglycemic drugs
CPT/HCPCS: J1650; Q9967

== ENCOUNTER 2022-08-05 16:19 | Emergency (ER) | payer SELFPAY ==
[~2022-08-05] VITALS: Ht 167.6 cm; Wt 133.8 kg
[~2022-08-05 16:19] MED LIST changes: +DEXAMETHASON6 MG PO; +EYE DROP; +NOVOLIN N100 UNIT/3 SC; +OXY1; +TIMOPTIC OCUDO; +ZITHROMAX250 MG PO; +[UNRECOGNIZED DRUG - SUPPLY] XX
[2022-08-05 16:39] VITALS: BP 170/88
[2022-08-05 16:55] LABS: HEMATOCRIT 41.4 % (37.0-47.0); HEMOGLOBIN 14.1 g/dl (12.0-16.0); IMMATURE GRANULOCYTES 0.1 % (0.0-5.0); MEAN CORPUSCULAR HGB 26.9 pG CALC (26.0-32.0); MEAN CORPUSCULAR HGB CONC 34.1 g/dL CAL (32.0-36.0); NEUT# 4.86 thou/uL (2.00-7.15); RED BLOOD COUNT 5.24 mill/uL (4.20-5.60)
[2022-08-05 17:01] VITALS: BP 151/124
[2022-08-05 17:12] LABS: ANION GAP 13 (6-22 (CALC)); BUN 9 mg/dL (7-17); BUN/CREATININE RATIO 16 (12-20 (CALC)); CARBON DIOXIDE 21 mmol/l (22-30); CHLORIDE 101 mmol/l (95-108); CREATININE 0.6 mg/dL (0.5-1.0); GFR FOR AFR.AMER. > 60 ML/MIN (>=60 (CALC)); GFR OTHER RACES > 60 ML/MIN (>=60 (CALC)); POTASSIUM 4.1 mmol/l (3.5-5.1); SGOT/AST 29 u/l (14-36); SODIUM 131 mmol/l (137-146)
[2022-08-05 17:14] LABS: ALBUMIN 3.9 g/dL (3.2-5.0); ALKALINE PHOSPHATASE 93 u/l (38-126); BILIRUBIN, TOTAL 1.2 mg/dL (0.0-1.4); TOTAL PROTEIN 7.3 g/dL (6.3-8.2)
[2022-08-05 17:32] VITALS: BP 148/78
[2022-08-05 18:00] VITALS: BP 153/82
[2022-08-05 18:30] VITALS: BP 169/86
[2022-08-05] MEDS ORDERED: ZPAK PO (18:50)
[2022-08-05] MEDS ORDERED: TESSALON PERLE100 MG PO (18:50)
[2022-08-05] MEDS ORDERED: MEDDOSEPAK PO (18:50)
[2022-08-05 18:54] VITALS: BP 169/86
== END 2022-08-05 19:05 | disposition home or self-care (01) | DRG 203 ==
LOC: ED 16:19
PROVIDERS: Nurse Practitioner
DX: J45.901 Unspecified asthma with (acute) exacerbation (principal); I10 Essential (primary) hypertension; E11.9 Type 2 diabetes mellitus without complications; F41.9 Anxiety disorder, unspecified; F32.9 Major depressive disorder, single episode, unspecified; Z79.84 Long term (current) use of oral hypoglycemic drugs; Z79.4 Long term (current) use of insulin
CPT/HCPCS: J3475

== ENCOUNTER 2023-02-11 20:10 | Emergency (ER) | payer SELFPAY ==
[~2023-02-11] VITALS: Ht 167.6 cm; Wt 129.0 kg
[~2023-02-11 20:10] MED LIST changes: +TESSALON PERLE100 MG PO; +ZPAK PO
[2023-02-11 22:11] LABS: BASO% 0.1 % (0-3); HEMATOCRIT 45.9 % (37.0-47.0); HEMOGLOBIN 14.9 g/dl (12.0-16.0); IMMATURE GRANULOCYTES 0.2 % (0.0-5.0); LYMPH% 14.9 % (15-41); MEAN CELL VOLUME 81.4 fL CALC (80.0-100.0); MEAN CORPUSCULAR HGB 26.4 pG CALC (26.0-32.0); MEAN CORPUSCULAR HGB CONC 32.5 g/dL CAL (32.0-36.0); MONO% 4.7 % (2-13); NEUT# 8.3 thou/uL (2.00-7.15); NEUT% 80.1 % (42-76); RED BLOOD COUNT 5.64 mill/uL (4.20-5.60); RED CELL DISTRI WIDTH 12.9 % (11.5-15.5)
[2023-02-11 22:13] LABS: URINE BLOOD DIPSTICK NEGATIVE (NEGATIVE); URINE COLOR YELLOW; URINE GLUCOSE - DIPSTICK 500 mg/dL (NEGATIVE); URINE KETONE >=80 mg/dL (NEGATIVE); URINE LEUK ESTERASE NEGATIVE (NEGATIVE); URINE PROTEIN - DIPSTICK 100 mg/dL (NEG-TRACE); URINE SPECIFIC GRAVITY >=1.030; URINE UROBILINOGEN - DIPSTICK 0.2 E.U./dL (0.2)
[2023-02-11 22:14] LABS: URINE BILIRUBIN - DIPSTICK SMALL (NEGATIVE); URINE NITRITE - DIPSTICK NEGATIVE (Negative)
[2023-02-11 22:23] LABS: URINE BACTERIA MODERATE hpf; URINE SQUAMOUS EPITHELIAL CELL FEW EPI/hpf (0-FEW); URINE YEAST MODERATE hpf
[2023-02-11 22:24] LABS: ALBUMIN 4.3 g/dL (3.2-5.0); ALKALINE PHOSPHATASE 94 u/l (38-126); ANION GAP 15 (6-22 (CALC)); BUN 15 mg/dL (7-17); BUN/CREATININE RATIO 22 (12-20 (CALC)); CARBON DIOXIDE 23 mmol/l (22-30); CHLORIDE 99 mmol/l (95-108); CREATININE 0.7 mg/dL (0.5-1.0); GFR FOR AFR.AMER. > 60 ML/MIN (>=60 (CALC)); GFR OTHER RACES > 60 ML/MIN (>=60 (CALC)); MAGNESIUM 1.7 mg/dL (1.6-2.3); POTASSIUM 4.6 mmol/l (3.5-5.1); SGOT/AST 36 u/l (14-36); SODIUM 132 mmol/l (137-146); TOTAL PROTEIN 8.3 g/dL (6.3-8.2)
[2023-02-12] MEDS ORDERED: HYDROCODONE POLISTIR PO (00:03)
[2023-02-12 00:34] VITALS: BP 121/92
== END 2023-02-12 00:46 | disposition home or self-care (01) | DRG 195 ==
LOC: ED 20:10
PROVIDERS: Family Medicine
DX: J10.1 Influenza due to other identified influenza virus with other respiratory manifestations (principal)

== ENCOUNTER 2024-12-21 17:20 | Emergency (ER) | payer SELFPAY ==
[~2024-12-21] VITALS: Ht 167.6 cm; Wt 138.3 kg
[~2024-12-21 17:20] MED LIST changes: +HYDROCODONE POLISTIR PO
[2024-12-21 17:50] VITALS: BP 134/72
[2024-12-21 18:00] VITALS: BP 128/67
[2024-12-21 18:16] VITALS: BP 118/65
[2024-12-21] MEDS ORDERED: IPRATROPIUM-Albuterol 0.5MG-2.5MG/3 ML NEB ONE (18:20)
[2024-12-21 18:30] VITALS: BP 134/69
[2024-12-21] MEDS ORDERED: AMOX/K CLAV875 M1 PO (18:56)
[2024-12-21 19:01] VITALS: BP 129/64
[2024-12-21 19:47] VITALS: BP 129/64
== END 2024-12-21 19:47 | disposition home or self-care (01) | DRG 153 ==
LOC: ED 17:20
DX: J06.9 Acute upper respiratory infection, unspecified (principal); I10 Essential (primary) hypertension; E11.9 Type 2 diabetes mellitus without complications; F41.9 Anxiety disorder, unspecified; F32.A Depression, unspecified; Z79.4 Long term (current) use of insulin; Z79.84 Long term (current) use of oral hypoglycemic drugs; Z20.822 Contact with and (suspected) exposure to COVID-19